=== PATIENT | male | born 1940 | race Caucasian/White ===

== ENCOUNTER 2017-07-10 10:52 | Inpatient (IN) | payer MEDICARE, OTHER ==
[~2017-07-10] VITALS: Ht 175.3 cm; Wt 78.5 kg
[2017-07-10] MEDS ORDERED: ROBAXIN 750 MG750 M1 PO (11:05)
[2017-07-10] MEDS ORDERED: PERCOCET PO (11:06)
[2017-07-10] MEDS ORDERED: MIRALAX17 GM PO (11:07)
[2017-07-10] MEDS ORDERED: NORVASC5 MG PO (11:08)
[2017-07-10] MEDS ORDERED: PLAVIX 75 MG TA75 M1 PO (11:09)
[2017-07-10] MEDS ORDERED: ASPIRIN EC81 M1 PO (11:09)
[2017-07-10] MEDS ORDERED: METFORMIN HCL500 MG PO (11:10)
[2017-07-10] MEDS ORDERED: NITROGLYCERIN0.4 MG SUBLING (11:11)
[2017-07-10] MEDS ORDERED: LOPRESSOR25 PO (11:11)
[2017-07-10] MEDS ORDERED: SIMVASTATIN40 MG PO (11:12)
[2017-07-10] MEDS ORDERED: PERICOLACE PO (11:15)
[2017-07-10] MEDS ORDERED: FLEXERIL PO (12:25)
[2017-07-10 12:30] VITALS: BP 119/74
--- NOTE | 2017-07-10 16:45 | NUR ---
ASSUMMED CARE OF PT ON ADMISSION TO UNIT, PT ALERT AND ORIENTED, [place], UP WITH ASSIST OF 1, GB AND TLSO BRACE, PT AMBULATED TO BATHROOM FOR BM, TOLERATED WELL, PT COMPLAINS OF BACK PAIN WITH MOVEMENT, MEDICATED PER ORDER, PT TOLERATES REGULAR DIET, DENIES NAUSEA, NO SKIN ISSUES NOTED BUT WILL ASSESS SKIN UNDER BRACE WHEN REMOVED, PT STATES HE NEEDS TO SIT AT ANGLE, RECLINER IN ROOM, STATES PT HAS NOT BEEN ABLE TO SIT IN STRAIGHT CHAIR PREVIOUS TO THIS FALL, MUM[place]Z, DENIES DIZZINESS, PARTICIPATED IN THERAPY THIS PM, HOURLY ROUNDING COMPLETED ASSESSMENT COMPLETE, ADMISSION EDUCATION DONE, ORIENTED TO UNIT, WILL CONTINUE TO MONITOR.
[2017-07-10 20:00] VITALS: BP 116/68
[2017-07-11 04:40] LABS: CALCIUM 8.5 mg/dL (8.5-10.1); CREATININE 0.9 mg/dL (0.6-1.3); POTASSIUM 3.9 mmol/L (3.5-5.1)
[2017-07-11 05:01] LABS: HEMATOCRIT 24.4 % (42.0-52.0); HEMOGLOBIN 8.3 gm/dL (14.0-18.0); MCH 34.8 pg (26.0-34.0); MCV 102.3 fL (80.0-100.0); MPV 10.3 fl. (7.2-11.1); RBC 2.39 mil/uL (4.50-6.00); WBC 7.7 thou/uL (4.0-11.0)
--- NOTE | 2017-07-11 05:23 | NUR ---
ASSUMED PT CARE AT 1930. PT ALERT AND ORIENTED BUT EXTREMELY [place], LEFT HEARING AIDES AT HOME. UP WITH ASSIST OF ONE, GAIT BELT AND TLSO BRACE. PT UP TO BATHROOM TO VOID AND FOR BM. PRN PAIN MEDICATION X2 FOR BACK PAIN. USES CALL LIGHT APPROPRIATELY. CALL LIGHT AND FREQUENTLY USED ITEMS WITHIN REACH. HOURLY ROUNDING IN PROGRESS, WILL CONTINUE TO MONITOR.
--- NOTE | 2017-07-11 06:44 | NUR ---
REMOVED PT TLSO BRACE WITH ASSIST OF OT, PT SKIN IS INTACT UNDER BRACE.
[2017-07-11 07:30] VITALS: BP 115/70
--- NOTE | 2017-07-11 16:20 | NUR ---
ASSUMED CARE AT 0730. ALERT ORIENTED PLEASANT COOPERATIVE. HX OF T-12-L-2 COMPRESSION FX WEARS TLSO BRACE CONTINOUSLY. TRANSFERS WITH SBA G BELT WALKER AND AMBULATES TO BR TO VOID AND ALSO HAD 2 BMS ABLE TO DO HYGEINE AND CLOTHING ADJUSTMENTS. USES CALL LIGHT APPROPRIATELY FOR ASSIST. STATES INCREASED DISCOMFORT WITH MOVEMENT BUT GOES DOWN WITH REST. PRN PAIN MED X 1 GIVEN BEFORE THERAPIES. APPETITE POOR STATES NOT MUCH APPETITE, SHOWED HIM ALTERATE CHOICES AND HE DOES LIKE STRAWBERRY AND [place]AN[place]A BOOST SUPPLEMENT. WOULD LIKE A SLEEPING PILL TONIGHT STATES HE WAKES UP THROUGH THE NIGHT.
[2017-07-11 20:00] VITALS: BP 122/62
--- NOTE | 2017-07-12 05:32 | NUR ---
ASSUMED PT CARE AT 1930. PT ALERT AND ORIENTED, PLEASANT AND COOPERATIVE WITH CARES. HX OF T-12-l-2 COMPRESSION FX. WEARS TLSO BRACE AT ALL TIMES. UP WITH SBA, GAIT BELT AND WALKER. AMBIEN GIVEN AT HS PER PT REQUEST. PT IMPULSIVE, SETTING OFF BED ALARM SEVERAL TIMES OVERNIGHT HEADING FOR THE BATHROOM WITHOUT CALLING FOR ASSIST. PT LOWERS BED RAIL ON HIS OWN AND THEN EXITS THE BED. PT SEEMED DISORIENTED AT TIMES, ASKING "IS THERE A BATHROOM HERE?" AND TRYING TO EXIT THE BATHROOM WITH HIS PANTS AROUND HIS ANKLES. STOOL X2 THIS SHIFT. MOVING PT CLOSER TO THE NURSES STATION WOULD BE SAFER FOR PT. TWO PERCOCET GIVEN PER PT REQUEST FOR BACK PAIN. CALL LIGHT WITHIN REACH. BED ALARM ON FOR SAFETY. HOURLY ROUNDING IN PROGRESS, WILL CONTINUE TO MONITOR.
[2017-07-12 07:30] VITALS: BP 114/70
[2017-07-12 12:14] LABS: HEMATOCRIT 26.2 % (42.0-52.0); HEMOGLOBIN 8.7 gm/dL (14.0-18.0); MCH 34.1 pg (26.0-34.0); MCHC 33.2 g/dL (28.0-37.0); MCV 102.8 fL (80.0-100.0); MPV 9.5 fl. (7.2-11.1); NUCLEATED RBCS 0 /100WBC; PLATELET COUNT* 256 thou/uL (150-400); RBC 2.55 mil/uL (4.50-6.00); RDW-CV 21.1 % (10.5-14.5); WBC 11.3 thou/uL (4.0-11.0)
[2017-07-12 13:55] LABS: ABSOLUTE LYMPHOCYTES 0.2 thou/uL (0.8-5.3); ABSOLUTE MONOCYTES 0.6 thou/uL (0.0-1.2); ABSOLUTE NEUTROPHILS 10.5 thou/uL (1.6-8.1); ANISOCYTOSIS 2+; BURR CELLS Occasional; LARGE PLATELETS OCCASIONAL; MACROCYTES 1+; OVALOCYTES Occasional; PLATELET ESTIMATE ADEQUATE; SCHISTOCYTES Occasional
[2017-07-12 13:56] LABS: POIKILOCYTOSIS 1+
[2017-07-12 13:57] LABS: HYPOCHROMASIA Occasional
--- NOTE | 2017-07-12 15:21 | NUR ---
ASSUMED CARE AT 0730. ALERT ORIENTED PLEASANT COOPERATIVE. HX OF THORACIC FX WEARS TLSO BRACE. C/O INCREASED BACK PAIN WITH ACTIVITY SUCH AMBULATION WITH WALKER G BELT TO TOILET TO VOID AND HAD BMS, ABLE TO DO HYGEINE AND CLOTHING ADJUSTMENTS. WANTS TO CUT BACK ON PRN PAIN MEDS AND DECLINED OFFER OF MEDS. USES CALL LIGHT APPROPRIATELY FOR ASSISTANCE. HERE VISITING THIS A.M. AROUND 1100 THROUGH LUNCH. PTS. APPETITE FAIR HE IS A PICKY EATER BUT WILL DRINK BOOST SUPPLEMENTS. AMBULATED X 2 IN HALLS WITH STAFF USING WALKER GAIT BELT. TLSO BRACE OFF FOR BATHING AND DRESSING THIS A.M. SKIN INTACT LOTION APPLIED.
[2017-07-12 20:00] VITALS: BP 116/64
--- NOTE | 2017-07-13 05:31 | NUR ---
ASSUMED CARES AT 1920. PT ALERT AND ORIENTED. PLEASANT. PT WANTED TO LEAVE TLSO BRACE ON DURING THE NIGHT. PAIN MEDS GIVEN PRN. TAKES PILLS WHOLE WITHOUT ISSUES. REFUSED HS SNACK. HE IS A MIN ASSIST WITH GAIT BELT AND WALKER. UP TO BATHROOM FEW TIMES TO VOID. INITIALLY HAD DIFFICULTY GETTING TO SLEEP. FINALLY SLEPT AFTER MIDNIGHT. DID NOT TRY TO GET OUT OF BED BY HIMSELF. USED CALL APPROPRIATELY. BED ALARM ON. WILL CONTINUE TO MONITOR.
[2017-07-13 07:47] VITALS: BP 115/61
--- NOTE | 2017-07-13 10:27 | NUR ---
SW met with pt to complete initial assessment, introduce self, and SW role. Pt alert and oriented, [place]. Pt lives at home with his . Pt was previously independent with ADLs and mobility. Pt has a cane but did not use prior to falling. Pt may need a rolling walker ordered at dc. No hx HH services or SNF. Pt did not express any concerns or questions at this time. SW to continue to follow to assist with safe dc planning.
--- NOTE | 2017-07-13 14:24 | NUR ---
Nutrition: Pt admitted to Rehab with T12 to L2 compression FXs. H/o CAD w/ CABG, DM, HTN, HLD, rectal cancer. +BM. Wt: 186#. BG <120. Eating 60-100% of regular diet. Pt would benefit from a Heart Healthy diet with a CHO count - RD ordered this. Mild to low risk at this time. Will follow weekly.
--- NOTE | 2017-07-13 16:10 | NUR ---
ASSUMED CARE AT 0730. ALERT ORIENTED PLEASANT COOPERATIVE. HX OF THORACIC FX WEARS TLSO BRACE, TRANSFERS WITH SBA G BELT WALKER AND AMBULATES TO BR TO VOID ABLE TO DO HYGEINE AND CLOTHING ADJUSTMENTS. USES CALL LIGHT APPROPRIATELY FOR ASSISTANCE. BED CHAIR ALARM FOR PT. SAFETY. PT. CONTINUES TO C/O BACK PAIN WHEN UP AND ABOUT WITH THERAPIES OR SITTING UP IN CHAIR. ENCOURAGED TO BE UP MORE LESS LYING IN BED BUT SEEMS TO HAVE SAME ISSUE WITH P.T. TODAY. APPETIE FAIR FEEDS SELF BUT IS PICKY EATER. OBTAINED ORDER FOR CONSULT FOR PODIATRY FOR TOENAILS.
--- NOTE | 2017-07-13 17:23 | NUR ---
HOURLY ROUNDING EVERY HOUR DENIES REQUESTS. RESTING IN BED.
[2017-07-13 19:47] VITALS: BP 129/69
--- NOTE | 2017-07-13 23:15 | NUR ---
ASSUMED CARE AT 1930. PATIENT S/P TRAUMA AND SPINAL FRACTURES. WEARING TLSO AT ALL TIMES, SPINAL PRECAUTIONS MAINTAINED. VOIDED STANDING AT TOILET TWICE THUS FAR. URINAL IN REACH. UP WITH SBA, GAIT BELT, WALKER. TURNS SELF IN BED, BUT PREFERS TO LIE ON BACK WITH HOB ELEVATED. TAKES PILLS WHOLE WITH WATER. REFUSED HS SNACK. MEDICATED FOR PAIN WITH GOOD RELIEF. DECIDED TO TRY ONE MELATONIN PILL (5 MG) RATHER THAN FULL DOSE FOR THE FIRST TIME TONIGHT. ALSO TOOK PAIN PILL AT HS. SEE JUN. OBSERVED WITH SNORING RESPS AT 2300. BED ALARM ON. CALL LITE IN REACH. HOURLY ROUNDS CONTINUE.
--- NOTE | 2017-07-14 05:58 | NUR ---
SLEPT MOST OF THE NIGHT EXCEPT WHEN HE WOKE UP NEEDING TO VOID. VOIDED PER URINAL TWICE, TOILET TWICE. WHEN USING THE URINAL HE STOOD AT SIDE OF BED. UP WITH SBA, GAIT BELT, WALKER. ABLE TO DO HYGIENE AND CLOTHING ADJUSTMENTS. MEDICATED FOR PAIN WITH GOOD RELIEF. HAD ONLY ONE MELATONIN 5 MG THIS PM. HAD SCHEDULED MUSCLE RELAXER WITH PRN PAIN MED AROUND 0506 PER REQUEST SO HE DIDN'T HAVE TO WAKE UP AGAIN FOR THE SCHEDULED MED. RETURNED TO SLEEP. HOURLY ROUNDS CONTINUE. BED ALARM ON. CALL LITE IN REACH.
[2017-07-14 08:00] VITALS: BP 120/72
--- NOTE | 2017-07-14 17:22 | NUR ---
pt has participated with therapies and calls for assist with ambulation with walker, gaitbelt and tlso brace on. pt voids well,usually standing at toilet with sba. prn for back pain given with good effect q4 hour during day. pt is alert and orientated and progresses towards goals. pt encouraged to be up to chair but can only tolerate short time and likes to lay down for comfort. pt remembers to call for assist with transferrs or ambulation. hourly rounding continues.
--- NOTE | 2017-07-14 17:59 | S ---
[address] [address] SURGICAL PATH RPT PROCEDURE Name: ROHITVIJAY Kris Room: [address] IN .R.#: [id number] Admission: 07/10/17 Date of : 40 Discharge: Report #: [id number] Path Case #: [id number] PATHOLOGY REPORT COLLECTION DATE: 07/12/2017 RECEIVED DATE: 07/13/2017 SUBMITTING PHYS: Dr. Eileen Garay OTHER PHYS: Dr. John Garcia SPECIMEN(S) RECEIVED: A.Peripheral smear * * * * * * * * * * * * FINAL DIAGNOSIS: Peripheral blood smear: - Moderate to severe macrocytic anemia and mild leukocytosis / neutrophilia. (See comment) COMMENT: Overall the peripheral blood has moderate to severe macrocytic anemia and mild leukocytosis / neutrophilia. The platelet count is within the normal reference range. There is moderate anisopoikilocytosis with only a very rare schistocyte seen. The etiology of the findings is unclear based entirely on slide review. Potential causes of macrocytic anemia include vitamin B12 and/or folate deficiency, liver and/or thyroid disease, and primary bone marrow disorders. Effects of chemotherapy are also a diagnostic consideration. While hemolysis is considered less likely due to no significant schistocytes identified, given the presence of a rare schistocyte, evaluation for hemolysis should be considered. The mild leukocytosis / neutrophilia is likely a reactive condition. Correlation with clinical history and additional laboratory data is required. (CLW:[email or web address]; 07/14/2017) PATHOLOGIST: Melissa Holt M.D. REPORT ELECTRONICALLY SIGNED BY: Melissa Holt M.D. DATE/TIME: 07/14/2017 17:59 * * * * * * * * * * * * MICROSCOPIC DESCRIPTION: CBC Data (07/12/2017): WBC 11,300 /uL, RBC 2.55, hemoglobin 8.7 g/dL, hematocrit 26.2%, MCV 102.8 fL, MCH 34.1 pg, MCHC 33.2 g/dL, RDW 21.1%. Platelet count 256,000 /uL. Manual white blood cell differential: segs 93%, lymphs 2%, and monos 5%. Peripheral Blood Smear: Cytomorphological examination of the Fagan's stained peripheral blood smear confirms the provided data. Red blood cells show moderate to severe macrocytic [place] [id number] SURGICAL PATH RPT PROCEDURE Name: VIJAY BEE Room: [address] ADM IN [facility]#: [id number] Admission: 07/10/17 Date of : 40 Discharge: Report #: [id number] Path Case #: [id number] anisopoikilocytosis. Scattered elliptocytes and crenated cells are identified. Occasional dacrocytes (pointed RBC's, teardrop cells) are also noted. There are very rare schistocytes present. White blood cells are predominantly segmented neutrophils with mild reactive changes. Occasional hypersegmented neutrophils are noted. There is no significant dyspoiesis or significant left shift. Rare lymphocytes are predominantly small, round, and mature appearing with condensed chromatin and scant cytoplasm with admixed large granular lymphocytes. Monocytes are mature. Platelets are adequate in number and mainly normal in morphology with scattered larger platelets and a rare giant platelet noted. Rare small platelet clumps are also seen. A very rare nucleated red blood cell is also identified on scanning. (CLW:[email or web address]; 07/14/2017) CLINICAL HISTORY: 77-year-old man with anemia and lumbar spine compression fractures. Morphologic review of the peripheral blood smear is requested by the patient's physician. INITIAL CPT CODE(S): A; [place] Professional services performed by [facility] at [facility] [address], [place] [address] Technical services performed by [employer] at [address] [place] [address], [address], [place] [address]. [facility] [address] [place] [address] PHONE: [phone] DIRECTOR: Feliciano Lomeli M.D. * * * END OF REPORT * * *
[2017-07-14 19:48] VITALS: BP 125/56
--- NOTE | 2017-07-14 20:40 | NUR ---
RESTING QUIELTY IN BED. TOOK MEDS WHOLE A FEW AT A TIME WITH WATER. RATES PAIN AT A "3". PT JUST WANTED 5 MG FLEXERIL WHICH WAS GIVEN. PT ALSO REQUESTED JUST 5 MG MELATONIN WHICH WAS GIVEN. AMBULATED TO THE BATHROOM WITH SBA, GAITBELT, WALKER. SHORTS FELL TO THE FLOOR AND NEEDED HELP PULLING THEM BACK UP. WEARS A TSLO BRACE AND UNABLE TO BEND TO GET TO THE SHORTS TO PULL THEM UP.
--- NOTE | 2017-07-15 05:30 | NUR ---
UP X 5 TO THE BATHROOM TO VOID DURING THE NIGHT. STANDS TO VOID. PERCOCET GIVEN AT 0152 FOR C/O BACK PAIN WITH NO RELIEF PER PT. DID OBTAIN RELIEF WITH FLEXERIL GIVEN AT 0248. HOURLY ROUNDING IN PROGRESS.
[2017-07-15 07:40] VITALS: BP 109/64
--- NOTE | 2017-07-15 14:00 | NUR ---
SW met with pt and reviewed team conference summary. Plan for team to reteam pt to reassess pt length of stay during team conference next Saturday 07/22. Pt okay with plan. SW spoke with pt over the phone and discussed plan as well. Pt and pt in agreement with plan. No concerns or questions noted at this time. SW to continue to follow to assist with safe dc planning.
--- NOTE | 2017-07-15 16:49 | NUR ---
PT HAS CALLED FOR ASSIST TO BATHROOM WITH WALKER, GAITBELT TLSO BRACE ON AND MIN ASSIST OF 1. PRN FOR PAIN TRAMADOL GIVEN THIS AFTERNOON WITH BETTER RELIEF THAN PERCOCET. PT VOIDING WELL IN BATHROOM BUT NO BM TODAY AND REQUESTS PRUNE JUICE AND EXTRA LAXATIVE AT BEDTIME TONIGHT. PT AMBULATES WELL AROUND UNIT WITH THERAPIES BUT CANNOT SIT FOR LONG TIMES DUE TO PAIN. PT REMAINS ALERT AND ORIENTATED AND PROGRESSES TOWARDS GOALS. HOURLY ROUNDING CONTINUES.
[2017-07-15 19:45] VITALS: BP 111/68
--- NOTE | 2017-07-15 23:57 | NUR ---
ASSUMED CARE AT 1930. S/P FALL AND LUMBAR FX. WEARING TLSO AT ALL TIMES. TAKES PILLS WHOLE WITH WATER WITHOUT DIFF. UP WITH GAIT BELT, WALKER. VOIDS PER TOILET. DOES OWN HYGIENE AND CLOTHING ADJUSTMENTS. TURNS SELF, BUT PREFERS TO SLEEP ON HIS BACK. REQUESTED PRUNE JUICE AND MOM THIS PM. ALSO HAD ORANGE SHERBET FOR HS SNACK. HOURLY ROUNDS CONTINUE. BED ALARM ON. CALL LITE IN REACH.
--- NOTE | 2017-07-16 05:51 | NUR ---
SLEPT MOST OF THE NIGHT. ONLY WANTS TO SLEEP ON HIS BACK WITH HOB ELEVATED. MOVES SELF IN BED. VOIDED PER TOILET. UP WITH GAIT BELT, WALKER. TLSO BRACE ON AT ALL TIMES. NO FURTHER C/O PAIN. HOURLY ROUNDS CONTINUE. BED ALARM ON. CALL LITE IN REACH.
[2017-07-16 07:57] VITALS: BP 108/66
--- NOTE | 2017-07-16 13:37 | NUR ---
AM ASSESSMENT AND VITAL SIGNS COMPLETED DOCUMENTED. PT IS A/O AND PLEASANT, PARTICIPATES WITH ALL THERAPIES BUT REFUSES TO GO TO THE DINING ROOM FOR MEALS. PT DOES HOWEVER AMBULATE IN HIS ROOM FREQUENTLY. TLSO BRACE WORN AT ALL TIMES PER PATIENT PREFERENCE. PT ALSO AMBULATES TO AND FROM THE GYM FOR THERAPY. FALL PRECAUTIONS AND HOURLY ROUDING CONTINUE.
[2017-07-16 20:00] VITALS: BP 106/60
--- NOTE | 2017-07-17 05:02 | NUR ---
ASSUMED CARES AT 1920. PT ALERT AND ORIENTED. PLEASANT. DENIED ANY NEED FOR PAIN MED. TLSO BRACE ON. HE IS A SBA WITH GAIT BELT AND WALKER. UP TO BATHROOM FEW TIMES DURING THE NIGHT. DOES OWN CARES. SLEPT MOST OF THE NIGHT. CALL LIGHT IN REACH AND BED ALARM ON.
[2017-07-17 07:38] VITALS: BP 119/68
--- NOTE | 2017-07-17 18:40 | NUR ---
AM ASSESSMENT AND VITAL SIGNS COMPLETED DOCUMENTED. PT REMAINS PLEASANT AND COOPERATIVE OTHER THAN GOING TO THE DINING ROOM. PT IS AMBULATORY WITH A WALKER. HOURLY ROUNDING AND FALL PRECAUTIONS IN PLACE. NO ACUTE DISTRESS.
[2017-07-17 22:44] VITALS: BP 116/66
--- NOTE | 2017-07-18 05:18 | NUR ---
ASSUMED CARES AT 1930. PT ALERT AND ORIENTED. CALM AND COOPERATIVE. TLSO BRACE ON. PAIN MEDS GIVEN PER REQUEST. TAKES PILLS WHOLE WITHOUT ISSUES. HE IS A SBA WITH GAIT BELT AND WALKER. UP TO BATHROOM. WEARS PULLUPS. USED CALL LIGHT APPROPRIATELY. BED ALARM ON.
[2017-07-18 07:43] VITALS: BP 121/65
[2017-07-18 08:04] VITALS: BP 121/65
--- NOTE | 2017-07-18 18:23 | NUR ---
PT HAS CALLED FOR SBA TO BATHROOM WITH WALKER,GAITBELT AND SBA OF 1 AND WEARING TLSO BRACE. PT CONTINENT OF B+B AND HAD MED BM TODAY. PRN FOR PAIN PERCOCET 2 TABS GIVEN THIS AM WITH GOOD EFFECT. PT HAS TOLERATED SITTING UP TO CHAIR FOR A LITTLE LONGER TIME AND APPEARS TO HAVE LESS PAIN. PT REMAINS ALERT AND ORIENTATED AND PROGRESSES TOWARDS GOALS, HOURLY ROUNDING CONTINUES WITH BED AND CHAIR ALARMS IN USE.
[2017-07-18 20:10] VITALS: BP 110/67
--- NOTE | 2017-07-19 05:15 | NUR ---
ASSUMED PT CARES AT 1930. PT ALERT AND ORIENTED X4, POLITE AND COOPERATIVE WITH CARES. PT WEARS TLSO BRACE AT ALL TIMES. PRN PAIN AND SLEEP MEDICATIONS GIVEN PER PT REQUEST AT HS. PT TAKES PILLS WHOLE WITH WATER WITHOUT DIFFICULTY. PT UP WITH SBA, GAIT BELT AND WALKER. PT CAN BE IMPULSIVE, SETTING OFF BED ALARM. PT WEARS PULLUPS. NO STOOL THIS SHIFT. CALL LIGHT AND FREQUENTLY USED ITEMS WITHIN REACH. HOURLY ROUNDING IN PROGRESS, WILL CONTINUE TO MONITOR.
[2017-07-19 07:56] VITALS: BP 116/66
--- NOTE | 2017-07-19 17:20 | NUR ---
PT HAS AMBULATED IN [place] WITH LTOS BRACE, WALKER,GAITBELT AND MIN ASSIST OF 1. PT CALLS FOR ASSIST TO BATHROOM AND VOIDS WELL AND HAD BM TODAY. PRN FOR PAIN 1 PERCOCET 10/325MG GIVEN THIS AM WITH GOOD EFFECT. PT REMAINS ALERT AND ORIENTATED AND PROGRESSES TOWARDS GOALS, HOURLY ROUNDING CONTINUES.
[2017-07-19 20:11] VITALS: BP 101/57
--- NOTE | 2017-07-20 05:14 | NUR ---
ASSUMED PT CARE AT 1930. PT ALERT AND ORIENTED X4, POLITE AND COOPERATIVE WITH CARES. PT WEARS TLSO BRACE AT ALL TIMES. PRN PAIN AND SLEEP MEDICATIONS GIVEN PER PT REQUEST AT HS. PT TAKES PILLS WHOLE WITH WATER WITHOUT DIFFICULTY. PT UP WITH SBA, GAIT BELT AND WALKER. PT WEARS PULLUPS. NO STOOL THIS SHIFT. CALL LIGHT AND FREQUENTLY USED ITEMS WITHIN REACH. HOURLY ROUNDING IN PROGRESS, WILL CONTINUE TO MONITOR.
[2017-07-20 08:10] VITALS: BP 106/64
--- NOTE | 2017-07-20 10:00 | NUR ---
VSS, ASSUMED CARE IN THE AM, ASSESSMENT PERFORMED AND CHARTED, FALL PRECAUTIONS IN PLACE AND CALL LIGHT IN REACH, PT IS A&O4 IS [place], ON [place] AND IS UP WITH ONE, HAS PAIN IN HIS LOWER BACK, PT GOAL IS TO WORK WITH PT/OT AND WORK IN THE GYM. WILL FOLLOW WITH PLAN OF CARE,
--- NOTE | 2017-07-20 15:18 | NUR ---
ISAIAH called pt Priscilla at [phone] with no answer so ISAIAH left a detailed message to call SW with any questions or concerns and reminded of team conference on Thursday. SW to continue to follow to assist with safe dc planning.
[2017-07-20 19:43] VITALS: BP 112/76
--- NOTE | 2017-07-21 05:06 | NUR ---
ASSUMED PT CARE AT 1930. PT ALERT AND ORIENTED X4, POLITE AND COOPERATIVE WITH CARES. PT IS [place]. HX L1, L2 FX. PT WEARS TLSO BRACE AT ALL TIMES. PRN PAIN AND SLEEP MEDICATIONS GIVEN PER PT REQUEST AT HS. PT TAKES PILLS WHOLE WITH WATER WITHOUT DIFFICULTY. PT UP WITH SBA, GAIT BELT AND WALKER TO VOID OVERNIGHT. PT WEARS PULLUPS. NO STOOL THIS SHIFT. CALL LIGHT AND FREQUENTLY USED ITEMS WTIHIN REACH. HOURLY ROUNDING IN PROGRESS, WILL CONTINUE TO MONITOR.
[2017-07-21 08:07] VITALS: BP 105/62
--- NOTE | 2017-07-21 10:09 | NUR ---
SW received call from pt Priscilla and SW answered questions about dc planning, follow up appts after dc, and idea of whether or not pt will be able to have surgery related to his cancer before August 19. Also discussed HH services to follow. SW to continue to follow to review team conference summary tomorrow and to assist with safe dc planning.
--- NOTE | 2017-07-21 12:41 | NUR ---
AM ASSESSMENT AND VITAL SIGNS COMPLETED DOCUMENTED. PT CONTINUES TO WORK WITH THERAPISTS BUT REFUSES TO GO TO THE DINING ROOM FOR MEALS DUE TO NOT BEING ABLE TO TOLERATE SITTING IN A CHAIR. PRN PAIN MEDICATIONS GIVEN FOR C/O BACK PAIN. PT LIES IN BED BETWEEN THERAPY SESSIONS BUT DOES AMBULATE TO THE BATHROOM AND THERAPY WITH A GAIT BELT AND WALKER. FALL PRECAUTIONS AND HOURLY ROUNDING CCONTINUE.
--- NOTE | 2017-07-21 17:45 | NUR ---
NO CHANGE IN PT STATUS.
[2017-07-21 19:40] VITALS: BP 117/69
--- NOTE | 2017-07-22 01:27 | NUR ---
ASSUMED CARE @ 1924-07/21-THURSDAY.WEARS TLSO BRACE @ ALL TIMES.HOB UP 30 DEGREES.BED ALARM PUT ON @ 1924.WANTS PAIN MED W/ PRN MELATONIN 5 MG ORAL & PRN FLEXERIL 10 MG ALL TOGETHER @ 2034.WANTS ONLY SIDERAILS X 2 UP.WANTS SINK LIGHT & BATHROOM LIGHT ON ALL NIGHT.SBA FOR ALL TRANSFERS & TOILETING W/ GB & WALKER.PREFERS TO STAY ON HIS BACK @ NIGHT DUE TO BODY BRACE.ON HOURLY ROUNDS.
--- NOTE | 2017-07-22 05:20 | NUR ---
SLEPT EARLY & SLEEPING SINCE 2119.SEE POSITION CHANGE CHARTING.TOOK ALL ORANGE SHERBET HS SNACK.BRP W/ SBA X2 DURING NIGHT.HAD MODERATE BM X1 @ 0220.
--- NOTE | 2017-07-22 05:23 | NUR ---
NURSE'S NOTES ENTERED @ 4434-ARE END OF SHIFT PROGRESS NOTES.
[2017-07-22 07:41] VITALS: BP 96/61
--- NOTE | 2017-07-22 13:12 | NUR ---
AM ASSESSMENT AND VITAL SIGNS COMPLETED DOCUMENTED. PT PARTICIPATES IN THERAPIES, STILL REFUSE TO GO TO THE DINING ROOM FOR MEALS. TLSO BRACE IN PLACE AT ALL TIMES. FALL PRECAUTIONS AND HOURLY ROUNDING IN PLACE. NO ACUTE DISTRESS AT THIS TIME.
--- NOTE | 2017-07-22 14:21 | CON ---
[address] [address] CONSULTATION Name: VIJAY BEE Room: [address] IN .R.#: [id number] Admission: 07/10/17 Attend Phys: Eileen Garay DO Discharge: Date of : 40 Report #: [id number] THIS REPORT FOR: //name// CC: FAM unknown Eileen Garay DATE OF SERVICE: 07/15/2017 CHIEF COMPLAINT: Diabetic foot care consultation for toenail debridement. 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 He is currently undergoing rehabilitation for lumbar vertebral compression fracture as well as wedge fracture of the thoracic vertebra. PHYSICAL EXAMINATION: The patient has severely dystrophic toenails bilaterally with onycholysis and onychomycosis. There are no paronychia or cardinal signs of infection. 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 He has faintly palpable dorsalis pedis and posterior tibial pulses bilaterally. There is no pallor or cyanosis. There is mild venous insufficiency and edema to the legs. There is some keratosis along the medial hallux bilaterally without ulceration. The toenails are painful to palpation. There is lysis with subungual debris, discoloration, pain and lysis from the nail plate. IMPRESSION: Type 2 diabetes mellitus with peripheral neuropathy, onychomycosis with pain, hyperkeratosis medial hallux bilaterally. PLAN: Toenails were manually and mechanically debrided x 10, calluses mechanically debrided at both great toes. The patient instructed to follow up for routine podiatric care in roughly 9 weeks in my office. <ELECTRONICALLY SIGNED> By: John Ingram DPM 07/22/17 1421 [id number] 1907John Ingram DPM /nt
--- NOTE | 2017-07-22 15:31 | NUR ---
SW met with pt to review team conference summary. Plan for pt to dc home with on Thursday and HH services to follow. SW to order rolling walker. Pt in agreement with plan. SW called pt to schedule family training for . Pt plans to come to the hospital and will discuss with SW at that time as well. SW to continue to follow to assist with safe dc planning.
--- NOTE | 2017-07-22 18:31 | NUR ---
NO CHANGE IN STATUS THIS SHIFT, WILL PLAN TO DISCHARGE HOME ON THURSDAY.
[2017-07-22 20:15] VITALS: BP 114/68
--- NOTE | 2017-07-23 00:55 | NUR ---
ASSUMED CARE @ 1924-07/22-THU.AWAKE IN BED WATCHING TV.TLSO BRACE IN PLACE. HOB UP 30 DEGREES.WANTS SIDERAILS X2 UP.WANTS SINK LIGHT ON ALL NIGHT. PATIENT SENT HOME IS-SO UNABLE TO DO.SEE PAIN MANAGEMENT @ 2116 W/ PRN MELATONIN 5 MG & ROBAXIN.SBA FOR ALL TRANSFERS & TOILETING.SEE POSITION CHANGE CHARTING.PREFERS TO STAY ON HIS BACK @ NIGHT DUE TO BACK BRACE.ON HOURLY ROUNDS.
--- NOTE | 2017-07-23 05:39 | NUR ---
SLEEPING SINCE 2199.REFUSED HS SNACK.BRP W/ SBA X3.FOR DISCHARGE THURSDAY-07/24.
[2017-07-23 07:47] VITALS: BP 158/70
--- NOTE | 2017-07-23 16:21 | NUR ---
WAS ASKED TO TALK WITH PT/ ABOUT DC TO SNF NOW RATHER THAN HOME WITH HH. SPOKE WITH GEORGES/YO RE: HER CONCERNS TODAY WHEN CAME IN FOR FAMILY TRAINING. PER GEORGES, STATED SHE WORKS AND PT WILL BE ALONE SOME DURING THE DAY. GEORGES STATED THAT THE 'TEAM' HAD CONCERNS ABOUT THAT PT STILL HAS: 'UNSTEADINESS, PUTS HIS WALKER TO THE SIDE AT TIMES, DOESN'T ALWAYS WEAR HIS SHOES AND MAKES POOR CHOICES.' ATTEMPTED TO CALL TO DISCUSS, HAD TO LEAVE VOICEMAIL. MET WITH PT. 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 THEY LIVE ON A FARM WITH [address] AND HAVE PEOPLE THAT COME BY TO CARE FOR HIS CATTLE AND HORSES. HE WAS ABLE TO ANSWER ALL QUESTIONS THAT I ASKED HIM. HE DENIES EVER GOING TO SNF BEFORE OR HAVING HH, BUT STATES HIS HAD HH IN THE PAST. THEY LIVE IN [place]. AWAIT CALL BACK FROM .
--- NOTE | 2017-07-23 20:05 | NUR ---
pt calls for assist with transferrs and ambulation with gaitbelt and walker and sba if 1 with tlso brace on. prn for pain given earlier this am with good effect. pt continent og b+b and has has med bm this am. pt calls for sba to ambulate in [place] for extra activity. pt remains alert and orietnated. hourly rounding continues.
[2017-07-23 20:14] VITALS: BP 103/68
--- NOTE | 2017-07-24 05:18 | NUR ---
ASSUMED CARE AT 1930. PATIENT S/P FALL AND FX L1, L2. RESTING IN BED AT CHANGE OF SHIFT. UP WITH SBA, GAIT BELT, WALKER. VOIDED PER TOILET THREE TIMES TONIGHT. WEARING TLSO AT ALL TIMES. REFUSES TO TURN, SLEEPS ON BACK WITH HOB ELEVATED FOR COMFORT. BETTER ABLE TO MANAGE CLOTHING AFTER VOIDING, SEEN SQUATTING DOWN TO PHARMACY DELIVERY DRIVER PANTS THAT FELL TO FLOOR WHILE HE WAS RISING FROM TOILET. TAKES PILLS WHOLE WITH WATER. TOOK ONE PAIN PILL, ONE MELATONIN AT HS. HOURLY ROUNDS CONTINUE. BED ALARM ON. CALL LITE IN REACH.
[2017-07-24 08:00] VITALS: BP 104/68
[2017-07-24 11:17] VITALS: BP 104/68
--- NOTE | 2017-07-24 11:24 | NUR ---
After concerns were presented from PT during family training, team discussed with pt need for pt to have someone with him at all times for supervision and stand by assist and for there to be a hand rail at pt's home entry. SW followed up with pt this morning and pt confirmed that she will take 2 weeks off of work and that someone will be with pt at all times. HH arranged with pt choice [facility]. RW ordered through [facility] and to be issued to pt today prior to dc. ISAIAH explained to pt the option of SNF in 2 weeks if HH and pt feel pt would not be safe to be alone at times, then SNF could be arranged within the 30 day window without pt needing to return to hospital. SW provided list of options. Pt to provide pt ride home between 13:00 and 14:00.
[2017-07-24 12:46] VITALS: BP 104/68
--- NOTE | 2017-07-24 13:54 | NUR ---
AM ASSESSMENT AND VITAL SIGNS COMPLETED DOCUMENTED. PT COMPLETED AM THERAPY SESSIONS AND IS READY TO GO HOME. DISCHARGE PAPERWORK AND PRESCRIPTIONS DISCUSSED, PRINTED COPY PROVIDED FOR HOME. PT AND HIS ARE AWARE OF SCHEDULED FOLLOW UP APPTS AT [facility]. PT AND HIS BELONGINGS TRANSFERRED TO [facility], ASSISTED INTO PRIVATE VEHICLE, DISCHARGED HOME IN STABLE CONDITION.
--- NOTE | 2017-08-04 13:29 | PLAN ---
[address] [address] REHAB UNIT PLAN OF CARE Name: VIJAY BEE Room: [address] IN [facility].#: [id number] Admission: 07/10/17 Attend Phys: Eileen Garay DO Discharge: 07/24/17 Date of : 40 Report #: [id number] THIS REPORT FOR: //name// CC: FAM unknown Eileen Garay This is a 77-year-old male admitted to inpatient rehabilitation to facilitate safe discharge home, status post acute hospitalization at [facility] after being diagnosed with an L1-L2 fracture, T12-L1 anterior wedge fracture, currently in a TLSO brace, treated conservatively by Neurosurgery. He was on a ladder, fell 6 feet onto his back and buttocks on 07/03/2017. CT done on 07/07/2017 did diagnose the fractures. Previous level of function was independent with activities of daily living. Current level of function is supervision to maximum assistance depending on therapy, activity and time of day. Comprehension, social interaction, problem solving and memory are within functional limits. MEDICAL PROGNOSIS: Good. REHABILITATION PROGNOSIS: Good. Estimated length of stay is 12-14 days with discharge disposition to the home setting where he has supportive family and an accessible house. Physical therapy will see the patient 60-90 minutes per day, 5 days per week, working on upper and lower body strength, balance, coordination, navigation. Occupational therapy will work with the patient 60-90 minutes per day, 5 days per week; working on upper and lower body strength, balance, coordination, navigation, bathing, dressing, and toileting. Spinal precautions will be maintained by all therapies and TLSO brace will be on at all times. This is an overall plan of care, may change from time to time. We will team weekly and make changes to plan of care as needed. <ELECTRONICALLY SIGNED> By: Eileen Garay DO 08/04/17 1329 [id number] Garay DO /nt
--- NOTE | 2017-08-04 13:29 | H ---
[address] [address] HISTORY AND PHYSICAL Name: VIJAY BEE Room: [address] IN [facility].#: [id number] Admission: 07/10/17 Attend Phys: Eileen Garay, Discharge: 07/24/17 Date of : 40 Report #: [id number] THIS REPORT FOR: //name// CC: FAM unknown Eileen Garay DATE OF SERVICE: 07/10/2017 HISTORY OF PRESENT ILLNESS: This is a 72-year-old male admitted to inpatient rehabilitation to facilitate safe discharge home, status post fall of 6 feet off a ladder on 07/03/2017, landing on buttocks and then falling onto his back with immediate low back pain. He was seen in local Emergency Room, discharged, continued to have pain, went to his oncologist for an office visit. CT of the pelvis was done and revealed lumbar spine injuries. He did then go to [facility], was admitted with Neurosurgery, treated conservatively with TLSO brace and spinal precautions. TLSO is to be on at all times. He was diagnosed with an L1-L2 fracture, T12-L1 anterior wedge fracture. He also has multiple medical comorbidities, complicating his overall condition. No significant changes since the preadmission screening. Previous level of function was modified independent to independent with activities of daily living. Current level of function is supervision to maximum assistance depending on therapy, activity and time of day. Comprehension, expression, social interaction are within functional limits. Estimated length of stay is 12-14 days with discharge disposition to the home setting where he lives in a house, no steps, 4 small steps to enter with no rail. is in good health and able to supervise and assist as needed on discharge. No significant changes since the preadmission screening. PAST MEDICAL HISTORY: Hypertension, diabetes type 2 with a random glucose of 112, hyperlipidemia, coronary artery disease, sciatica, history of rectal cancer, history of chemotherapy and radiation. PAST SURGICAL HISTORY: CABG and then angioplasty with stents. ALLERGIES: No known drug allergies. MEDICATIONS: Reviewed and reconciled by myself and are available in the MAR. FAMILY HISTORY: Cancer and heart disease. SOCIAL HISTORY: No tobacco, alcohol or illicit drug use. REVIEW OF SYSTEMS: A 14-point review of systems done today is negative except as mentioned in HPI, specifically no fever, chest pain, shortness of breath, abdominal pain or distention, change in [place] [id number] HISTORY AND PHYSICAL Name: VIJAY BEE Room: [address]#: [id number] Admission: 07/10/17 Attend Phys: Eileen Garay, Discharge: 07/24/17 Date of : 40 Report #: [id number] PHYSICAL EXAMINATION: GENERAL: Alert, oriented, no apparent distress. VITAL SIGNS: Reviewed and are stable. HEENT: Head: Atraumatic, normocephalic. Pupils are equal, round, reactive. ABDOMEN: Soft, nontender, nondistended. NEUROLOGIC: Cranial nerves 2 through 12 are grossly intact. No focal neuro deficits, 5/5 strength in the bilateral upper and lower extremities. SKIN: Warm and dry. No rashes or lesions noted. TLSO brace is on, in place. ASSESSMENT: 1. Status post L1-L2 fracture with a T12-L1 anterior wedge fracture with TLSO brace on at all times. 2. Multiple medical comorbidities including hypertension, diabetes type 2, history of cancer and coronary artery disease. 3. Alterations in activities of daily living, requiring acute inpatient rehabilitation. PLAN: 1. Admission to inpatient rehabilitation. 2. PT, OT, speech, language, case management, nursing and HIMS to make evaluations and recommendations. 3. Team weekly. 4. Laboratories on day after admission. 5. Adjust pain medications as needed. 6. Plan of care is pending. <ELECTRONICALLY SIGNED> By: Eileen Garay DO 08/04/17 1329 [id number] Garay DO /nt
--- NOTE | 2017-08-04 13:30 | D ---
[address] [address] DISCHARGE SUMMARY Name: VIJAY BEE Room: [address] IN [facility]#: [id number] Admission: 07/10/17 Attend Phys: Eileen Garay DO Discharge: 07/24/17 Date of : 40 Report #: [id number] THIS REPORT FOR: //name// CC: FAM unknown Eileen Garay DATE OF SERVICE: 07/24/2017 DISCHARGE DIAGNOSIS: Status post multiple lumbar fractures post fall. DISCHARGE DISPOSITION: To the home setting with PT, OT, nursing. We will maintain his spinal precautions as well as TLSO on at all times when out of bed in greater than 30 degrees, sitting up in bed. He will follow up with his ortho in 1-2 weeks, his primary care physician within 1 week. He will maintain a regular diet. Fall precautions. He is on a regular diet. MEDICATIONS: Reviewed and reconciled by myself and are available in the MAR. DISCHARGE PHYSICAL EXAMINATION: GENERAL: Alert, oriented, in no apparent distress. VITAL SIGNS: Reviewed and are stable. HEENT: Head: Atraumatic, normocephalic. Pupils equal, round, reactive. ABDOMEN: Soft, nontender, nondistended. TLSO is in place. MUSCULOSKELETAL: No clubbing, cyanosis or edema. NEUROLOGIC: 5/5 strength in bilateral upper and lower extremities. SKIN: Warm and dry. No rashes or lesions noted. <ELECTRONICALLY SIGNED> By: Eileen Garay DO 08/04/17 1330 [id number] Garay DO /nt
== END 2017-07-24 14:21 | disposition home health service (06) | DRG 552 ==
LOC: M.REH 10:52
PROVIDERS: Internal Medicine; ADMIT Physical Medicine & Rehabilitation
PROC: 0HBRXZZ Excision of Toe Nail, External Approach (ICD-10-PCS; principal; 2017-07-15)
DX: S32.019A Unspecified fracture of first lumbar vertebra, initial encounter for closed fracture (principal); S22.089A Unspecified fracture of T11-T12 vertebra, initial encounter for closed fracture; I10 Essential (primary) hypertension; E78.5 Hyperlipidemia, unspecified; I25.10 Atherosclerotic heart disease of native coronary artery without angina pectoris; M54.30 Sciatica, unspecified side; D53.9 Nutritional anemia, unspecified; E11.42 Type 2 diabetes mellitus with diabetic polyneuropathy; L60.1 Onycholysis; B35.1 Tinea unguium; L85.9 Epidermal thickening, unspecified; Z79.82 Long term (current) use of aspirin; Z79.899 Other long term (current) drug therapy; Z85.048 Personal history of other malignant neoplasm of rectum, rectosigmoid junction, and anus; Z92.3 Personal history of irradiation; Z95.1 Presence of aortocoronary bypass graft; Z95.5 Presence of coronary angioplasty implant and graft; W11.XXXA Fall on and from ladder, initial encounter; Y93.89 Activity, other specified; Y92.89 Other specified places as the place of occurrence of the external cause; Y99.8 Other external cause status; Z80.9 Family history of malignant neoplasm, unspecified; Z82.49 Family history of ischemic heart disease and other diseases of the circulatory system